=== PATIENT | female | born 1990 | race Hispanic/Latino ===

== ENCOUNTER 2016-08-27 06:44 | Day surgery (SDC) | payer MEDICAID ==
[~2016-08-27 06:44] MED LIST: ANCEF/STERILE WATER 2 GM/20 ML 2 GM/20 ML SYRINGE IV SCH; HEPARIN SUB-Q NR; NACL 0.9% 1000 ML 1,000 ML IV SCH; PEPCID PO NR; VERSED IV NR; ceFAZolin 2 GM in NACL 0.9% 100 ML IV ONE
[2016-08-27] MEDS ORDERED: XYLOCAINE MPF 2% ONE (07:53)
[2016-08-27] MEDS ORDERED: ZEMURON IV ONE (07:53)
[2016-08-27] MEDS ORDERED: SUBLIMAZE ONE ×2 (07:53→08:53)
[2016-08-27] MEDS ORDERED: DIPRIVAN 10 MG/ML IV ONE ×2 (07:53→08:53)
[2016-08-27] MEDS ORDERED: VERSED IV NR (08:00)
[2016-08-27] MEDS ORDERED: MARCAINE-EPI 0.25%-1:200,000 INFILTRATI ONE ×3 (08:10→08:29)
--- NOTE | 2016-08-27 08:15 | Anesthesia Consultation ---
Anesthesia Consult and Med Hx Date of service: 08/27/16 - Airway Anesthetic Teeth Evaluation: Good ROM Head & Neck: Adequate Mental/Hyoid Distance: Adequate Mallampati Class: Class I Intubation Access Assessment: Good - Pulmonary Exam CTA: Yes - Cardiac Exam Cardiac Exam: RRR - Pre-Operative Health Status ASA Pre-Surgery Classification: ASA2 Proposed Anesthetic Plan: General - Pulmonary Hx Smoking: Yes
--- NOTE | 2016-08-27 08:16 | Anesthesia Day of Surgery ---
Anesthesia Day of Surgery - Day of Surgery Patient Examined: Yes Patient H&P Reviewed: Yes Patient is NPO: Yes
[2016-08-27] MEDS ORDERED: NACL 0.9% IR ONE (08:29)
[2016-08-27] MEDS ORDERED: ZOFRAN ONE (09:05)
[2016-08-27] MEDS ORDERED: DECADRON ONE (09:05)
[2016-08-27] MEDS ORDERED: ROBINUL ONE (09:08)
[2016-08-27] MEDS ORDERED: NEOSTIGMINE ONE (09:08)
[2016-08-27] MEDS ORDERED: DILAUDID ONE ×2 (09:08→10:05)
--- NOTE | 2016-08-27 09:36 | Short Stay Summary ---
Short Stay Documentation Date of service: 08/27/16 - Allergies and Medications Current Medications: Allergies No Known Allergies Allergy (Verified 06/27/16 22:12) Home Medications Medication Instructions Recorded Confirmed Last Taken Type Calcium Carbonate [Tums] 1,000 mg PO BID PRN 08/24/16 08/27/16 1 Month Ago History Norgestimate-Ethinyl Estradiol 1 each PO QDAY 08/24/16 08/27/16 08/26/16 History [Sprintec 28 Day Tablet] Active Medications Famotidine (Pepcid) 20 mg PO PREOP NR Stop: 08/27/16 17:59 Last Admin: 08/27/16 08:01 Dose: 20 mg Heparin Sodium (Porcine) (Heparin) 5,000 unit SUB-Q PREOP NR Stop: 08/27/16 23:59 Last Admin: 08/27/16 08:15 Dose: 5,000 unit Cefazolin Sodium (Ancef/Sterile Water 2 Gm/20 Ml) 2 gm in 20 mls @ 80 mls/hr IV PREOP SHABBIR Stop: 08/27/16 23:59 Sodium Chloride (Nacl 0.9% 1000 Ml) 1,000 mls @ 100 mls/hr IV DIRECT SHABBIR Last Admin: 08/27/16 08:00 Dose: 100 mls/hr Midazolam HCl (Versed) 2 mg IV PREOP NR Stop: 08/27/16 23:59 Last Admin: 08/27/16 08:20 Dose: 2 mg - Brief post op/procedure progress note Date of procedure: 08/27/16 Pre-op diagnosis: Biliary colic Post-op diagnosis: same Procedure: Lap butch Anesthesia: GETA, local Surgeon: LAILA GARCIA Electrical Installation Inspector: MISSY GRIFFITHS Estimated blood loss: none Pathology: list (gallbladder) Specimen disposition: to lab Condition: stable - Disposition Condition at discharge: Good Disposition: DISCHARGED TO HOME OR SELFCARE Short Stay Discharge Plan Activity: no restrictions Diet: regular Wound: remove dressing (08/29/16 and then may shower) Follow up with: JOYCE ALMEIDA MD [Primary Care Provider] - 7 Days LAILA GARCIA MD [Staff Physician] - 7 Days Prescriptions: oxyCODONE /ACETAMINOPHEN [Percocet 5/325] 1 - 2 tab PO Q4HR PRN #30 tab PRN Reason: Pain Promethazine [Phenergan TAB] 25 mg PO Q6HR PRN #10 tab PRN Reason: Nausea
[2016-08-27] MEDS ORDERED: DILAUDID IV PRN (10:12)
[2016-08-27 10:49] VITALS: BP 140/92
--- NOTE | 2016-08-27 10:57 | Post Anesthesia Evaluation ---
- Post Anesthesia Evaluation Patient Participated: Yes Airway Patent: Yes Stable Respiratory Function: Yes Nausea/Vomiting: No Temp > 96.8F: Yes Pain Manageable: Yes Adequeate Hydration: Yes Anesthesia Complications: No
--- NOTE | 2016-08-27 11:49 | Operative Report ---
PREOPERATIVE DIAGNOSIS: Biliary colic. POSTOPERATIVE DIAGNOSIS: Biliary colic. PROCEDURE: Laparoscopic cholecystectomy. SURGEON: Jun Noriega MD BORDER GUARD: Dr. Gordon. ANESTHESIA: General and local. ESTIMATED BLOOD LOSS: Minimal. SPECIMEN: Gallbladder. COMPLICATIONS: None. INDICATIONS: This is a 26-year-old female who has right upper quadrant postprandial abdominal pain with gallstones, presents now for laparoscopic cholecystectomy for her biliary colic. OPERATIVE COURSE: The patient was brought to the operating room, identified, and placed in the supine position. General anesthesia was achieved. Her abdomen was prepped and draped in usual manner. Prior to all incisions, the area was infiltrated with 0.25% Marcaine. An infraumbilical 5 mm incision was made using Veress needle technique. The abdomen was insufflated to 15 mmHg pressure. A 5 mm trocar was inserted using a 30-degree 5-mm telescope. The trocars were placed under direct vision, which included a 10 mm epigastric port site and two 5 mm right lateral ports. The gallbladder was grasped and elevated. We tented up the triangle of Calot and dissected out the cystic duct and artery, we transected the duct and artery proximally and distally with clips, transected them and then removed the gallbladder from the liver bed using electrocautery. The gallbladder was removed from the abdomen with a EndoCatch bag. The liver bed was seen to be hemostatic during the procedure, clips in good position. No other pathology was seen. The ports were removed under direct vision. No signs of bleeding from the port sites. We then evacuated the CO2 and closed all the incisions with a 4-0 Vicryl suture, Steri-Strips and bandage. She tolerated the procedure well without complications. JOB# [id number] [facility]
== END 2016-08-27 11:25 | disposition home or self-care (01) ==
LOC: OR 06:44
PROVIDERS: ATTEND Surgery
DX: K80.64 Calculus of gallbladder and bile duct with chronic cholecystitis without obstruction (principal); F17.210 Nicotine dependence, cigarettes, uncomplicated
CPT/HCPCS: 47562; 81025; 88304; J0690; J1100; J1170; J1644; J2250; J2405; J2704; J2710; J3010; J7030